=== PATIENT | female | born 1960 | race Two or more races ===

== ENCOUNTER → 2018-07-19 | Outpatient (CLI) | payer OTHER | END | disposition home or self-care (01) | LOC: SONOGRAMA 10:45 | DX: E04.2 Nontoxic multinodular goiter (principal) ==

== ENCOUNTER 2018-12-20 07:47 | Outpatient (CLI) | payer OTHER | END 2018-12-20 07:51 | disposition home or self-care (01) | LOC: SONOGRAMA 07:47 | DX: E04.2 Nontoxic multinodular goiter (principal) ==